=== PATIENT | female | born 1995 | race Caucasian/White ===

== ENCOUNTER 2020-04-22 08:37 | Day surgery (SDC) | payer OTHER ==
[2020-04-20 11:40] VITALS: BMI 22.8
[2020-04-22] MEDS ORDERED: BUPIVACAINE HCL/PF 2.5 MG/ML - 30 ML VIAL IJ ONE (09:28)
[2020-04-22] MEDS ORDERED: HALOPERIDOL LACTATE 5 MG/ML ONE (10:08)
[2020-04-22] MEDS ORDERED: MIDAZOLAM HCL 2 MG/2 ML SINGLE DOSE VIAL ONE (10:11)
[2020-04-22] MEDS ORDERED: SUCCINYLCHOLINE CHLORIDE 200 MG/10 ML SYRINGE ONE (10:11)
[2020-04-22] MEDS ORDERED: PROPOFOL 20 ML ONE ×2 (10:11→10:29)
[2020-04-22] MEDS ORDERED: BUPIVACAINE HCL/PF 0.25% (2.5MG/ML) 10 ML VIAL IJ ONE ×2 (10:41→10:53)
[2020-04-22] MEDS ORDERED: oxyCODONE HCL 5 MG TABLET PO PRN ×2 (11:15)
[2020-04-22] MEDS ORDERED: PROMETHAZINE HCL 25 MG/1 ML VIAL IVPUSH PRN (11:15)
[2020-04-22] MEDS ORDERED: ONDANSETRON 4 MG/2 ML VIAL IVPUSH PRN (11:15)
[2020-04-22] MEDS ORDERED: traMADol HCL 50 MG TABLET ONE (12:26)
[2020-04-22 13:14] VITALS: BP 122/82; PULSE 70; TEMP 98.2
--- NOTE | 2020-04-22 14:08 | OP ---
DATE OF OPERATION: 04/22/2020 LOCATION: [facility]. SURGEON: Elly Andrade MD PHOTOGRAPHY INSTRUCTOR: ANDREA Sparks PREOPERATIVE DIAGNOSIS: Left knee lateral meniscal tear. POSTOPERATIVE DIAGNOSIS: Left knee lateral meniscal tear. PROCEDURE: Partial meniscectomy, lateral meniscus (CPT code 61404). FINDINGS: 1. Medial meniscus with evidence of tearing. 2. Lateral meniscus posterior 1/2 with extensive tearing and complete avulsion from the capsule with no attachments along the posterior 1/2. 3. Synovitis, medial, lateral and patellofemoral area. 4. ACL and PCL intact. 5. Minimal cartilage changes, medial, lateral and patellofemoral joint. PROCEDURE: Informed consent was obtained. The patient was taken to the operating room, where the left lower extremity was prepped and draped in a sterile fashion. A tourniquet was placed on the upper leg but not inflated. Using standard arthroscopic technique, a lateral incision and portal was made to allow for introduction of the camera into the suprapatellar bursa. Under direct visualization, a medial incision and portal was made. Excessive synovitis was debrided. Probing the medial and lateral meniscus found the tears as described in the findings. The lateral meniscus had no attachments. There was 1 tread along the posterior horn of 2 fibers, and it was not attached again until mid-meniscus. It was avulsed completely from the capsule. This was then removed using an upbiter and shaver, taking it back to a stable rim on the anterior portion. Minimal cartilage changes were noted. The knee was then drained. A single suture was placed in all portals. A sterile dressing was placed. Patient was transferred to the recovery room without complication. ELLY ANDRADE M.D. [id number]
--- NOTE | 2020-04-26 16:20 | PATH ---
Surgical Pathology Report Patient Name: VINITA RUIZ Med. Rec. #: [id number] /Age/Gender: 1995 (Age: 24) / F Account: [id number] Location: [facility] AMBUL[facility] Taken: 04/22/2020 Received: 04/22/2020 Reported: 04/26/2020 Physicians: Angelo Shaw M.D. Specimen(s) Received SHAVINGS LEFT KNEE Clinical History Left knee derangement Final Diagnosis LEFT KNEE SHAVINGS: PORTIONS OF FIBROUS AND FIBROADIPOSE TISSUE WITH FOCAL SYNOVIAL HYPERPLASIA. Electronically Signed Radha Rose M.D. Gross Description Received in formalin, labeled "left knee shavings" is a 3.2 x 2.3 x 1.0 cm aggregate of light and yellow-hassan, soft tissue. Nutritional Services Host tissue is submitted in one cassette. AE/04/22/2020 ebram/04/22/2020
== END 2020-04-22 13:15 | disposition home or self-care (01) ==
LOC: FASU 08:37
PROVIDERS: ATTEND Orthopaedic Surgery
PROC: 0SBD4ZZ Excision of Left Knee Joint, Percutaneous Endoscopic Approach (ICD-10-PCS; 2020-04-22)
PROC: 0SBD4ZZ Excision of Left Knee Joint, Percutaneous Endoscopic Approach (ICD-10-PCS; principal; 2020-04-22 10:38)
DX: S83.282A Other tear of lateral meniscus, current injury, left knee, initial encounter (principal); M65.862 Other synovitis and tenosynovitis, left lower leg; X58.XXXA Exposure to other specified factors, initial encounter; Y93.9 Activity, unspecified; Y92.9 Unspecified place or not applicable
CPT/HCPCS: 84703; 88304-TC; 94760